=== PATIENT | female | born 1965 | race Caucasian/White ===

== ENCOUNTER → 2019-12-02 11:35 | Outpatient (BNVA) | payer BC, SELFPAY | PROVIDERS: PCP Nurse Practitioner Family; Visit Provider Nurse Practitioner Family | DX: E55.9 Vitamin D deficiency, unspecified (principal); E78.2 Mixed hyperlipidemia; I10 Essential (primary) hypertension; R53.83 Other fatigue; M51.36 Other intervertebral disc degeneration, lumbar region; K80.20 Calculus of gallbladder without cholecystitis without obstruction; M51.34 Other intervertebral disc degeneration, thoracic region; Z79.899 Other long term (current) drug therapy | CPT/HCPCS: 80053; 80061; 81001; 82306; 83036; 84443; 85025 ==

== ENCOUNTER → 2020-05-19 15:46 | Outpatient (BNVA) | payer BC, SELFPAY | PROVIDERS: PCP Nurse Practitioner Family; Visit Provider Nurse Practitioner Family | DX: N39.0 Urinary tract infection, site not specified (principal); A49.9 Bacterial infection, unspecified; H91.90 Unspecified hearing loss, unspecified ear; H93.19 Tinnitus, unspecified ear; R30.0 Dysuria | CPT/HCPCS: 81000 ==

== ENCOUNTER → 2020-11-10 09:07 | Outpatient (BNVA) | payer BC, SELFPAY | PROVIDERS: PCP Nurse Practitioner Family; Visit Provider Nurse Practitioner Family | DX: I10 Essential (primary) hypertension (principal); E55.9 Vitamin D deficiency, unspecified; E78.2 Mixed hyperlipidemia; Z79.899 Other long term (current) drug therapy; R10.2 Pelvic and perineal pain | CPT/HCPCS: 80053; 80061; 81003; 82306; 83036; 84443; 85025 ==

== ENCOUNTER 2020-11-28 15:13 | Outpatient (CLI) | payer BC, SELFPAY ==
--- NOTE | 2020-11-28 15:45 | US_ITS ---
WS: [id number] ULTRASOUND PELVIS TECHNIQUE: Transabdominal and transvaginal. ULTRASOUND PELVIS TECHNIQUE: Transabdominal. CLINICAL INFORMATION: R10.2 - Pelvic and perineal pain LMP: : No. COMPARISON: None. FINDINGS: Prior hysterectomy and left oophorectomy. Adnexa: No adnexal masses. Right ovary is not visualized. Left ovary is been removed. Free fluid: None. Other findings: None. US/US pelvic with transvaginal IMPRESSION: 1. Prior hysterectomy and left oophorectomy. 2. Right ovary is not visualized. 3. No free fluid in the cul-de-sac.
== END 2020-11-28 15:14 | disposition home or self-care (01) ==
LOC: RAD 15:16
PROVIDERS: PCP Nurse Practitioner Family; Visit Provider Nurse Practitioner Family
DX: R10.2 Pelvic and perineal pain (principal); Z90.710 Acquired absence of both cervix and uterus; Z90.721 Acquired absence of ovaries, unilateral
CPT/HCPCS: 76830; 76856

== ENCOUNTER → 2021-09-17 00:01 | Outpatient (BNVA) | payer BC, SELFPAY | PROVIDERS: PCP Nurse Practitioner Family; Visit Provider Nurse Practitioner Family | DX: Z20.822 Contact with and (suspected) exposure to COVID-19 (principal); R05.9 Cough, unspecified | CPT/HCPCS: 87635 ==

== ENCOUNTER → 2021-10-18 08:24 | Outpatient (BNVA) | payer BC, SELFPAY | PROVIDERS: PCP Nurse Practitioner Family; Visit Provider Nurse Practitioner Family | DX: E55.9 Vitamin D deficiency, unspecified (principal); I10 Essential (primary) hypertension; Z79.899 Other long term (current) drug therapy; E78.2 Mixed hyperlipidemia | CPT/HCPCS: 80053; 80061; 81003; 82306; 83036; 84443; 85025 ==

== ENCOUNTER → 2021-11-21 16:26 | Outpatient (BNVA) | payer BC, SELFPAY | PROVIDERS: PCP Nurse Practitioner Family; Visit Provider Nurse Practitioner Family | DX: R22.41 Localized swelling, mass and lump, right lower limb (principal) | CPT/HCPCS: 73610 ==

== ENCOUNTER 2022-08-02 07:56 | Outpatient (CLI) | payer OTHER, SELFPAY ==
[2022-08-02 08:30] LABS: Basophils % 0.5 %; Eosinophils # 0.1 10^3/uL (0.0-0.8); Eosinophils % 1.1 %; Hematocrit 42.3 % (37.0-47.0); Hemoglobin 13.9 g/dL (11.5-15.3); Lymphocytes # 1.3 10^3/uL (0.8-4.8); Lymphocytes % 21.4 %; Mean Corpuscular HGB Conc 32.9 g/dL (30.0-36.0); Mean Corpuscular Hemoglobin 28.5 pg (28.0-34.0); Mean Corpuscular Volume 86.7 fl (81-99); Mean Platelet Volume 11.1 fL (7.4-10.4); Monocytes # 0.3 10^3/uL (0.2-0.9); Monocytes % 5.3 %; Neutrophils # 4.42 10^3/uL (1.8-7.7); Neutrophils % 71.5 %; Nucleated Red Blood Cells % 0 %; Platelet Count 221 10^3/cmm (130-400); Red Blood Count 4.88 10^6/uL (4.1-5.3); Red Cell Distribution Width 13.2 % (12.1-15.1); White Blood Count 6.2 10^3/uL (4.0-10.0)
[2022-08-02 08:58] LABS: Alanine Aminotransferase 16 U/L (0-33); Albumin Level 4.3 g/dL (3.5-5.2); Alkaline Phosphatase 91 U/L (35-105); Anion Gap 16.1 (5-19); Aspartate Amino Transferase 15 U/L (0-32); Blood Urea Nitrogen 15 mg/dL (6-20); Calcium 9.3 mg/dL (8.5-10.5); Carbon Dioxide 26 mmol/L (22-29); Chloride 104 mmol/L (98-107); Chol HDL Ratio 3.19 mg/dL (0.0-4.40); Cholesterol 188 mg/dL (0-200); Globulin 2.9 g/dL (1.3-4.6); Glomerular Filtration Rate 73.7 mL/min (90-130); Glucose 98 mg/dL (65-115); HDL Cholesterol 59 mg/dL (60-100); LDL Cholesterol Calculated 109 mg/dL (50-129); LDL HDL Ratio 1.85 RATIO (0.00-3.22); Osmolality Calculated 295 mOsm/kg (285-295); Potassium 4.1 mmol/L (3.5-5.1); Sodium 142 mmol/L (136-145); Thyroid Stimulating Hormone 2.55 uIU/mL (0.27-4.20); Total Bilirubin 0.7 mg/dL (0.15-1.2); Total Protein 7.2 g/dL (6.6-8.7); Triglycerides 101 mg/dL (0-150)
[2022-08-03 07:37] LABS: T4 Total 9.1 mcg/dL (5.1-11.9)
== END 2022-08-02 07:57 | disposition home or self-care (01) ==
LOC: LAB 08:01
PROVIDERS: Visit Provider Nurse Practitioner Family
DX: Z13.29 Encounter for screening for other suspected endocrine disorder (principal); Z13.220 Encounter for screening for lipoid disorders; I10 Essential (primary) hypertension
CPT/HCPCS: 36415; 80053; 80061; 84436; 84443; 85025

== ENCOUNTER 2024-06-28 08:52 | Outpatient (CLI) | payer OTHER, SELFPAY ==
[2024-06-28 09:35] LABS: Basophils % 0.5 %; Eosinophils # 0.1 10^3/uL (0.0-0.8); Eosinophils % 1.1 %; Hematocrit 39.7 % (36-47); Lymphocytes # 1.3 10^3/uL (0.8-4.8); Mean Corpuscular HGB Conc 33.5 g/dL (30-55); Mean Corpuscular Volume 86.5 fl (85-98); Mean Platelet Volume 10.6 fL (7.4-10.4); Monocytes # 0.4 10^3/uL (0.2-0.9); Monocytes % 6.4 %; Neutrophils # 4.34 10^3/uL (1.8-7.7); Neutrophils % 70.8 %; Nucleated Red Blood Cells % 0 %; Platelet Count 229 10^3/cmm (157-399); Red Blood Count 4.59 10^6/uL (3.85-5.65); Red Cell Distribution Width 13.1 % (12.1-15.1); White Blood Count 6.13 10^3/uL (3.29-11.43)
[2024-06-28 10:03] LABS: Alanine Aminotransferase 10 U/L (0-33); Alkaline Phosphatase 75 U/L (35-105); Anion Gap 11.2 (5-19); Aspartate Amino Transferase 13 U/L (0-32); Blood Urea Nitrogen 17 mg/dL (8-23); Calcium 8.3 mg/dL (8.5-10.5); Carbon Dioxide 27 mmol/L (22-29); Chloride 101 mmol/L (98-107); Chol HDL Ratio 2.44 mg/dL (0.0-4.40); Cholesterol 144 mg/dL (0-200); Globulin 2.4 g/dL (1.3-4.6); Glomerular Filtration Rate 73.2 mL/min (90-130); Glucose 90 mg/dL (65-115); HDL Cholesterol 59 mg/dL (60-100); LDL Cholesterol Calculated 70 mg/dL (50-129); LDL HDL Ratio 1.19 RATIO (0.00-3.22); Osmolality Calculated 281 mOsm/kg (285-295); Potassium 4.2 mmol/L (3.5-5.1); Sodium 135 mmol/L (136-145); Thyroid Stimulating Hormone 2.21 uIU/mL (0.27-4.20); Total Bilirubin 0.6 mg/dL (0.15-1.2); Total Protein 6.4 g/dL (6.6-8.7); Triglycerides 76 mg/dL (0-150)
== END 2024-06-28 08:53 | disposition home or self-care (01) ==
LOC: LAB 08:55
PROVIDERS: PCP Nurse Practitioner Family; Visit Provider Nurse Practitioner Family
DX: I10 Essential (primary) hypertension (principal)
CPT/HCPCS: 36415; 80053; 80061; 84443; 85025

== ENCOUNTER 2024-07-23 09:30 | Outpatient (CLI) | payer OTHER, SELFPAY ==
--- NOTE | 2024-07-23 09:38 | MM_ITS ---
WS: [id number] BILATERAL SCREENING DIGITAL TOMOSYNTHESIS MAMMOGRAM WITH CAD HISTORY: SCREENING COMPARISON: 04/09/2019, 02/03/2015 Bilateral CC and MLO views with tomosynthesis and synthetic mammography submitted. Computer aided det ection analyzed. Breast composition: There are scattered areas of fibroglandular density. No suspicious masses, microc alcifications or architectural distortion. MM/MM scr BI tomosynthesis [id number] IMPRESSION: BI-RADS: 2 - Benign. FOLLOW UP: 1 Year Follow-up
== END 2024-07-23 09:34 | disposition home or self-care (01) ==
PROVIDERS: PCP Nurse Practitioner Family; Visit Provider Nurse Practitioner Family
DX: Z12.31 Encounter for screening mammogram for malignant neoplasm of breast (principal); R92.323 Mammographic fibroglandular density, bilateral breasts
CPT/HCPCS: 77063; 77067

== ENCOUNTER 2025-01-04 05:40 | Observation (INO) | payer OTHER, SELFPAY ==
[2025-01-04] VITALS (26 sets, daily range): BP systolic 94–195; BP diastolic 58–115; PULSE 59–92; RESP 12–28; TEMP 36.2–37.2; O2SAT 93–100; BMI 28.5
--- NOTE | 2025-01-04 05:50 | ECG_ITS ---
[facility] Date: 2025-01-04 Pat Name: Hailee Howell Department: Room: Gender: Female Chief Crna: : 1965 Requested By: Mo Treadwell Order Number: [id number] Thong MD: Bianca Naik M.D. Measurements Intervals [place] Rate: 72 P: 47 MT: 186 QRS: 2 QRSD: 90 T: 33 QT: 396 QTc: 436 Interpretive Statements SINUS RHYTHM LOW QRS VOLTAGE IN PRECORDIAL LEADS [QRS DEFLECTION < 1.0 mV IN CHEST LEADS] INTERPRETATION BASED ON A DEFAULT AGE OF 40 YEARS No previous ECG available for comparison Electronically Signed On 01-05-2025 21:37:00 CDT by Bianca Naik M.D. [id number]
--- NOTE | 2025-01-04 05:51 | ED_ITS ---
HPI - Chest Pain 2 General: Chief Complaint: Chest Pain Stated Complaint: Chest Pain Time Seen by Provider: 01/04/25 05:49 History of Present Illness: 59-year-old female presents to the [facility] and see room with chest pain and upper abdominal pain that began around 3 AM this morning woke her up from sleep. States she has had similar episodes multiple times in the past however they were far less intense. She does not have any radiation of pain to the neck arm or back. Taking her history and exam she localizes the pain more to the right upper quadrant. She has been told she has a sluggish gallbladder in the past. She has not had any further imaging or follow-up on that. She has noticed intermittent acholic stools that are associated with these episodes of pain. She denies any medic easy melena hematemesis coffee-ground emesis no dysuria urgency or frequency no hematuria no flank pain. No recent diarrhea. She did use some salt water last night without improvement. Associated symptoms: Reports abdominal pain and nausea; Deny dyspnea, fever(s) or vomiting Related Data Home Medications ?Medication ?Instructions ?Recorded ?Confirmed bupropion HCl 300 mg 24 hr tablet, 300 mg PO QAM 01/0401/04/25 extended release diltiazem HCl 240 mg 240 mg PO DAILY 01/04/25 capsule,extended release 24 hr, controlled (DILT-XR) olmesartan 20 mg tablet 20 mg PO BID 01/04/25 Previous Rx's ?Medication ?Instructions ?Recorded alprazolam 0.25 mg tablet (Xanax) 0.25 mg PO TID PRN a nxiety 30 days 12/14/21 #90 tabs Allergies Allergy/AdvReac Type Severity Reaction Status Date / Time Opioids - Morphine Analogues Allergy Intermediate itch Verified 01/04/25 05:49 Review of Systems 2 Const: Denies: fever(s) or chills Card: Reports: chest pain Resp: Denies: dyspnea GI: Reports: abdominal pain, nausea, bloating, GI cramping and white/light colored stool; Denies: vomiting, hematemesis, coffee ground emesis, diarrhea, hematochezia or melena : Denies: dysuria, urinary frequency or urinary urgency Musc: Denies: neck pain or back pain Skin/Breast: Denies: rash PFSH ED 2 PFSH: Medical History Tinnitus of both ears Bacterial otitis media Mass of right ankle Anxiety Lower respiratory infection Acute bacterial sinusitis Encounter for medication management Dermatitis, dyshidrotic Tinnitus Hearing loss right ear UTI (urinary tract infection), bacterial Mixed hyperlipidemia Vitamin D deficiency Essential hypertension Surgical History S/P left knee surgery 2015, fracture repair with hardware 2016, hardware removed - [facility], Dr. Mcmanus S/P laparoscopic procedure [facility] H/O bladder repair surgery S/P abdominal hysterectomy and left salpingo-oophorectomy [place], Dr. Aranda - S/P arthroscopy of right shoulder Dr. Thakkar early Social History Smoking and tobacco/nicotine status: former use of tobacco/nicotine (Hx of smoking when younger ) Physical Exam 2 Const: GENERAL APPEARANCE: cooperative ORIENTATION/CONSCIOUSNESS: Yes awake, Yes oriented to person, Yes oriented to place and Yes oriented to time HENMT: COMMON NORMALS: normocephalic, atraumatic and hearing grossly normal bilaterally HEAD & SCALP: normocephalic and atraumatic Resp: COMMON NORMALS: normal respiratory effort, No retractions, No use of accessory muscles and clear to auscultation bilaterally AUSCULTATION: clear to auscultation bilaterally Cardio: COMMON NORMALS: regular rate, regular rhythm and No murmurs present (Cardio) RATE: regular rate RHYTHM: regular rhythm GI: COMMON NORMALS: No hepatosplenomegaly present AUSCULTATION: Yes normoactive bowel sounds PALPATION: Yes Tenderness to palpation present (GI) Details: RUQ, No Guarding due to palpation present (GI) and Yes No hepatosplenomegaly present Extremity: COMMON NORMALS: normal to inspection, capillary refill normal, no clubbing, cyanosis or edema, no calf tenderness and no pedal edema Neuro: SENSORIUM/ORIENTATION: Yes oriented to person, Yes oriented to place and Yes oriented to time Skin: COMMON NORMALS: no rashes or lesions noted GENERAL SKIN EXAM: no rashes or lesions noted Course 2 Vital Signs: Vital signs: Vital Signs Temperature 97.6 F 01/04/25 16:12 Pulse Rate 68 01/04/25 16:12 Respiratory Rate 18 01/04/25 16:12 Blood Pressure 149/87 01/04/25 16:12 Pulse Oximetry 97 01/04/25 16:12 Oxygen Delivery Me thod Room Air 01/04/25 16:12 MDM - Chest Pain Medical Decision Making Ultrasound shows gallbladder sludge and cholelithiasis mild thickening of the gallbladder wall. White count is normal liver enzymes normal. We have titrated on pain medications she has had two 4 mg doses of morphine as well as Toradol. Add Zosyn and will consult surgery for early cholecystitis with cholelithiasis. Lab Data 01/04/25 06:30 01/04/25 05:53 Radiology Impressions Gallbladder Ultrasound 01/04/25 06:00 IMPRESSION: 1. Cholelithiasis in a normally distended gallbladder with a small amount of sludge. No pericholecystic fluid or gallbladder wall edema. Mild gallbladder wall thickening. 2. No common bile duct dilatation. Abdomen/Pelvis CT 01/04/25 06:57 IMPRESSION: 1. Gallbladder diameter is measuring top normal size. No adjacent edema or inflammation or wall thickening. Stones identified by ultrasound. Early changes of acute cholecystitis not excluded. 2. No intrahepatic duct dilatation. 3. Sigmoid diverticulosis without acute diverticulitis. 4. RIGHT adrenal gland mass, indeterminate. Recommend MRI or CT with adrenal gland protocol, with with and without contrast. This can be done on a nonurgent basis. 5. Tiny amount of air in the urinary bladder. May be due to instrumentation or infection. 6. Prior hysterectomy. RIGHT ovary remains. Laboratory Results WBC 8.03 10^3/uL (3.29-11.43) 01/04/25 06:30 Corrected WBC Cancelled 01/04/25 05:53 RBC 4.51 10^6/uL (3.85-5.65) 01/04/25 06:30 Hgb 13.00 g/dL (11.27-16.99) 01/04/25 06:30 Hct 38.3 % (36-47) 01/04/25 06:30 MCV 84.9 fl (85-98) L 01/04/25 06:30 MCH 28.8 pg (27-33) 01/04/25 06:30 MCHC 33.9 g/dL (30-55) 01/04/25 06:30 RDW 13.1 % (12.1-15.1) 01/04/25 06:30 Plt Count 214 10^3/cmm (157-399) 01/04/25 06:30 MPV 10.6 fL (7.4-10.4) H 01/04/25 06:30 Gran % Cancelled 01/04/25 05:53 Neut % (Auto) 80.8 % 01/04/25 06:30 Lymph % (Auto) 12.3 % 01/04/25 06:30 [place] % (Auto) 5.4 % 01/04/25 06:30 Eos % (Auto) 0.6 % 01/04/25 06:30 Baso % (Auto) 0.4 % 01/04/25 06:30 Neut # (Auto) 6.49 10^3/uL (1.8-7.7) 01/04/25 06:30 Lymph # (Auto) 1.0 10^3/uL (0.8-4.8) 01/04/25 06:30 [place] # (Auto) 0.4 10^3/uL (0.2-0.9) 01/04/25 06:30 Eos # (Auto) 0.1 10^3/uL (0.0-0.8) 01/04/25 06:30 Baso # (Auto) 0.0 10^3/uL (0.0-0.1) 01/04/25 06:30 Absolute Gran (auto) Cancelled 01/04/25 05:53 Nucleated RBC % (auto) 0 % 01/04/25 06:30 Nucleated RBCs # 0.0 /100WBC 01/04/25 06:30 Sodium 139 mmol/L (136-145) 01/04/25 05:53 Potassium 3.8 mmol/L (3.5-5.1) 01/04/25 05:53 Chloride 103 mmol/L (98-107) 01/04/25 05:53 Carbon Dioxide 22 mmol/L (22-29) 01/04/25 05:53 Anion Gap 17.8 (5-19) 01/04/25 05:53 BUN 16 mg/dL (8-23) 01/04/25 05:53 Creatinine 0.8 mg/dL (0.5-0.9) 01/04/25 05:53 GFR Calculation 72.9 mL/min (90-130) L 01/04/25 05:53 Glucose 101 mg/dL (65-115) 01/04/25 05:53 Calculated Osmolality 289 mOsm/kg (285-295) 01/04/25 05:53 Calcium 9.6 mg/dL (8.5-10.5) 01/04/25 05:53 Total Bilirubin 0.6 mg/dL (0.15-1.2) 01/04/25 05:53 AST 15 U/L (0-32) 01/04/25 05:53 ALT 14 U/L (0-33) 01/04/25 05:53 Alkaline Phosphatase 92 U/L (35-105) 01/04/25 05:53 Troponin T Baseline 8 ng/L (0-10) 01/04/25 05:53 Troponin T 120 Minute 7.57 ng/L (0-10) 01/04/25 07:34 Delta Troponin T -0.43 ABS# (0-10) L 01/04/25 07:34 Total Protein 7.1 g/dL (6.6-8.7) 01/04/25 05:53 Albumin 4.6 g/dL (3.5-5.2) 01/04/25 05:53 Globulin 2.5 g/dL (1.3-4.6) 01/04/25 05:53 Lipase 65 U/L (13-60) H 01/04/25 05:53 Urine Color Yellow (Yellow) 01/04/25 06:17 Urine Appearance Cloudy (CLEAR) A 01/04/25 06:17 Urine pH 7 (5-7) 01/04/25 06:17 Ur Specific [place] 1.015 (1.005-1.030) 01/04/25 06:17 Urine Protein Neg (Negative) 01/04/25 06:17 Urine Glucose (UA) Norm (Normal) 01/04/25 06:17 Urine Ketones Negative (Negative) 01/04/25 06:17 Urine Blood Neg (Negative) 01/04/25 06:17 Urine Nitrate Negative (Negative) 01/04/25 06:17 Urine Bilirubin Neg (Negative) 01/04/25 06:17 Urine Urobilinogen Neg mg/dL (Negative) 01/04/25 06:17 Ur Leukocyte Esterase Trace (Negative) H 01/04/25 06:17 Urine RBC 0-4 /hpf (0-2) H 01/04/25 06:17 Urine WBC 5-10 /hpf (0-5) H 01/04/25 06:17 Ur Squamous Epith Cells 5-10 /hpf (0-5) H 01/04/25 06:17 Amorphous Sediment 3+ /hpf 01/04/25 06:17 Urine Bacteria 1+ /hpf (NONE) H 01/04/25 06:17 Hyaline Casts [employer] Officer 01/04/25 06:17 Coarse Granular Casts 0-4 /lpf H 01/04/25 06:17 Urine Mucus Trace /hpf 01/04/25 06:17 All radiology interpretation(s) finalized by discharge EKG Data EKG 1: Interpretation: EKG January 04, 2025 5:42 AM Sinus rhythm, rate of 72 SD interval 186 QT 396. No acute ST changes noted T waves upright in anterior leads Discharge Plan Discharge Patient Disposition: Admitted As Inpatient Admit Provider: Aldo Cash Clinical Impression: Cholecystitis, acute with cholelithiasis Condition: Stable Coding Level of Care Code ED Vamper for Chg Art
--- NOTE | 2025-01-04 06:00 | US_ITS ---
WS: [id number] RIGHT UPPER QUADRANT ULTRASOUND HISTORY: RUQ pain, + [place], acholic stool COMPARISON: None available. Liver: 15.0 cm in length. Normal size liver and echogenicity. No bile duct dilatation or mass. Portal Vein: Not well visualized. There is a short segment visualized with normal color Doppler. Pulsed Doppler is limited. Gallbladder: Normally distended gallbladder with stones and small amount of sludge. No pericholecystic fluid. Mild gallbladder wall thickening with no edema. CBD: 0.4 cm Pancreas: Normal size and echogenicity. Right kidney: 9.8 cm in length. Normal size and echogenicity. No hydronephrosis or mass. Aorta and IVC: Unremarkable abdominal aorta and IVC. No ascites. US/US gall bladder [id number] IMPRESSION: 1. Cholelithiasis in a normally distended gallbladder with a small amount of s ludge. No pericholecystic fluid or gallbladder wall edema. Mild gallbladder wal l thickening. 2. No common bile duct dilatation.
[2025-01-04] MEDS: diphenhydrAMINE 50 mg/mL SDV 1mL IVP (06:08)
[2025-01-04] MEDS: morphine 4 mg/mL SDV 1 mL IVP ×4 (06:09→15:37)
[2025-01-04 06:16] LABS: Troponin(5th) Baseline 8 ng/L (0-10)
[2025-01-04 06:21] LABS: Alanine Aminotransferase 14 U/L (0-33); Albumin Level 4.6 g/dL (3.5-5.2); Alkaline Phosphatase 92 U/L (35-105); Anion Gap 17.8 (5-19); Aspartate Amino Transferase 15 U/L (0-32); Blood Urea Nitrogen 16 mg/dL (8-23); Calcium 9.6 mg/dL (8.5-10.5); Carbon Dioxide 22 mmol/L (22-29); Chloride 103 mmol/L (98-107); Creatinine Clr Calc Pharmacy 81.5845; Globulin 2.5 g/dL (1.3-4.6); Glomerular Filtration Rate 72.9 mL/min (90-130); Glucose 101 mg/dL (65-115); Lipase 65 U/L (13-60); Osmolality Calculated 289 mOsm/kg (285-295); Potassium 3.8 mmol/L (3.5-5.1); Sodium 139 mmol/L (136-145); Total Bilirubin 0.6 mg/dL (0.15-1.2); Total Protein 7.1 g/dL (6.6-8.7)
[2025-01-04 06:36] LABS: Basophils % 0.4 %; Eosinophils # 0.1 10^3/uL (0.0-0.8); Eosinophils % 0.6 %; Hematocrit 38.3 % (36-47); Lymphocytes % 12.3 %; Mean Corpuscular HGB Conc 33.9 g/dL (30-55); Mean Corpuscular Hemoglobin 28.8 pg (27-33); Mean Corpuscular Volume 84.9 fl (85-98); Mean Platelet Volume 10.6 fL (7.4-10.4); Monocytes # 0.4 10^3/uL (0.2-0.9); Monocytes % 5.4 %; Neutrophils # 6.49 10^3/uL (1.8-7.7); Neutrophils % 80.8 %; Nucleated Red Blood Cells % 0 %; Platelet Count 214 10^3/cmm (157-399); Red Blood Count 4.51 10^6/uL (3.85-5.65); Red Cell Distribution Width 13.1 % (12.1-15.1); White Blood Count 8.03 10^3/uL (3.29-11.43)
--- NOTE | 2025-01-04 06:57 | CT_ITS ---
WS: [id number] CT ABDOMEN AND PELVIS WITH CONTRAST HISTORY: Abdomen and RIGHT upper quadrant pain. TECHNIQUE: Imaging performed of the abdomen and pelvis with IV contrast. Single phase imaging of the abdomen. Coronal and sagittal reformats are submitted. All CT scans at [facility] use at least one of these dose optimization techniques: automated exposure control; mA and/or kV adjustment per patient size (includes targeted exams where dose is matched to clinical indication); or iterative reconstruction. IV CONTRAST: Omnipaque 350; 100 mL IV. Oral contrast: No DLP: 512.27 mGy.cm COMPARISON: Gallbladder ultrasound 01/04/2025 Lower thorax: Benign granuloma RIGHT lung base. No pneumonia. Heart is normal size. No hiatal hernia. Liver/biliary system: Normal size liver. There are a few very tiny areas of decreased attenuation which are too small to characterize. There is no intrahepatic bile duct dilatation. Portal vein is normal. Gallbladder: Gallbladder is very slightly hydropic with transverse diameter approaching 4 cm. Stones identified by ultrasound are not visualized by CT. No pericholecystic fluid or gallbladder wall thickening identified. Normal common bile duct. Pancreas: Normal size pancreas and pancreatic duct. No adjacent inflammation. Spleen: Normal size spleen. No mass or infarct. Adrenal glands: RIGHT adrenal gland heterogeneous bilobed mass measuring 3.3 x 2.1 cm. The largest lobulation measures 2.5 x 1.8 cm. LEFT adrenal gland is normal. Right kidney: Normal. Left kidney: Normal. Aorta: Mild atherosclerosis with no aneurysm. Lymphadenopathy: None. Free fluid: None. GI tract: Normally distended stomach. No small bowel obstruction. Normal appendix. Mild diffuse constipation. Mild diverticular burden in the sigmoid colon without acute diverticulitis. Abdominal wall: Unremarkable abdominal wall. No hernia. Pelvis: Urinary bladder is well distended. There is a tiny focus of air in the urinary bladder which may be due to instrumentation or infection. No fistula with the GI tract suspected. Prior hysterectomy. RIGHT ovary remains with a small follicle. Bones: Unremarkable. CT/CT abdomen pelvis w con* [id number] IMPRESSION: 1. Gallbladder diameter is measuring top normal size. No adjacent edema or inf lammation or wall thickening. Stones identified by ultrasound. Early changes of acute cholecystitis not excluded. 2. No intrahepatic duct dilatation. 3. Sigmoid diverticulosis without acute diverticulitis. 4. RIGHT adrenal gland mass, indeterminate. Recommend MRI or CT with adrenal g land protocol, with with and without contrast. This can be done on a nonurgent basis. 5. Tiny amount of air in the urinary bladder. May be due to instrumentation or infection. 6. Prior hysterectomy. RIGHT ovary remains.
[2025-01-04 07:09] LABS: Add Urine Microscopic? YES; Bilirubin Urine Neg (Negative); Blood Urine Neg (Negative); Glucose Urine UA Norm (Normal); Ketones Urine Negative (Negative); Leukocyte Esterase Urine Trace (Negative); Nitrate Urine Negative (Negative); Protein Urine Neg (Negative); Specific Gravity, Urine 1.015 (1.005-1.030); Urine Appearance Cloudy (CLEAR); Urine Color Yellow (Yellow); Urobilinogen Urine Neg (Negative); pH Urine 7 (5-7)
[2025-01-04 07:10] LABS: UA Manual Slide Review YES
[2025-01-04 07:11] LABS: RBC Urine 0-4 /hpf (0-2)
[2025-01-04 07:12] LABS: Add Urine Culture? No; Amorphous Sediment Urine 3+ /hpf; Bacteria Urine 1+ /hpf; Coarse Granular Casts Urine 0-4 /lpf; Mucus Urine TRACE /hpf
[2025-01-04] MEDS: ketorolac 30 mg/mL INJ IVP (07:19)
--- NOTE | 2025-01-04 07:32 | PC.PHAR ---
Addendum entered by Rosie Van 01/04/25 07:34: Removed Pro Air HFA, Vit d3 50,000 units, Eucrisa 2% Oint., Gabapentin 300mg, Lisinopril 10mg, Zofran 4mg odt, Miralax, Paxil 10mg, Transderm scope patch, and Triamcinolone Acet. 0.1% cr. Original Note: Pts' med list has not been updated since 2021-removed 8 old prn meds and creams.
--- NOTE | 2025-01-04 07:50 | ECG_ITS ---
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 Measurements Intervals [place] Rate: 62 P: 97 [place]: 186 QRS: -28 QRSD: 86 T: -29 QT: 424 QTc: 431 Interpretive Statements SINUS RHYTHM POSSIBLE LEFT ATRIAL ENLARGEMENT [-0.1mV P-WAVE IN V1/V2] BORDERLINE LEFT AXIS DEVIATION [QRS AXIS < -20] Compared to ECG 01/04/2025 05:42:55 No significant changes Electronically Signed On 01-05-2025 21:51:57 CDT by Bianca Naik M.D. [email or web address]
[2025-01-04 08:02] LABS: Troponin 5 2HR 7.57 ng/L (0-10)
[2025-01-04 08:05] LABS: Troponin 5 2HR Delta -0.43 ABS# (0-10)
[2025-01-04] MEDS: iohexol 350 mg/mL 500 mL Btl (per mL) IV (08:17)
--- NOTE | 2025-01-04 09:36 | P.HP_ITS ---
Providers/Chief Complaint 2 Admitting Physician: Aldo Cash MD Primary Care Provider: Elyse Tavarez APN Chief Complaint: Chest Pain History of Present Illness Hailee Howell is a 59 year old female who presented with acute cholecystitis. Patient initially reported right upper quadrant pain that radiated to the back. Ultrasound and CT scan findings consistent with a early acute cholecystitis. No relevant past medical or surgical history Medications/Allergies Home Medications ?Medication ?Instructions ?Recorded ?Confirmed ?Last Taken ?Type alprazolam 0.25 mg tablet (Xanax) 0.25 mg PO TID PRN a nxiety 30 days 12/14/21 01/04/25 Unknown Rx #90 tabs bupropion HCl 300 mg 24 hr tablet, 300 mg PO QAM 01/0401/04/25 01/03/25 History extended release diltiazem HCl 240 mg 240 mg PO DAILY 01/04/2501/03/25 History capsule,extended release 24 hr, controlled (DILT-XR) olmesartan 20 mg tablet 20 mg PO BID 01/04/2501/03/25 History Allergies Allergy/AdvReac Type Severity Reaction Status Date / Time Opioids - Morphine Analogues Allergy Intermediate itch Verified 01/04/25 05:49 PFSH Acute 2 PFSH: Medical History Tinnitus of both ears Bacterial otitis media Mass of right ankle Anxiety Lower respiratory infection Acute bacterial sinusitis Encounter for medication management Dermatitis, dyshidrotic Tinnitus Hearing loss right ear UTI (urinary tract infection), bacterial Mixed hyperlipidemia Vitamin D deficiency Essential hypertension Surgical History S/P left knee surgery 2015, fracture repair with hardware 2016, hardware removed - [facility] [place], Dr. Mcmanus S/P laparoscopic procedure [facility] H/O bladder repair surgery S/P abdominal hysterectomy and left salpingo-oophorectomy [place], Dr. Aranda - S/P arthroscopy of right shoulder Dr. Thakkar early Social History Smoking and tobacco/nicotine status: former use of tobacco/nicotine (Hx of smoking when younger ) Vitals/I&O/Wt Last Vital Signs Temp 97.8 F 01/04/25 05:45 Pulse 63 01/04/25 06:12 Resp 20 H 01/04/25 06:59 BP 181/108 01/04/25 06:12 Pulse Ox 100 01/04/25 06:12 O2 Del Method Room Air 01/04/25 06:12 01/03/25 01/04/25 01/04/25 22:59 06:59 14:59 Intake Total 0 / 0 Balance 0 / 0 Weight last 48 hrs Weight 182 lb Physical Exam 2 Narrative: Chest: Unlabored breathing room air. No lymphadenopathy. Heart: Regular rate and rhythm. Abdomen: Soft, tender right upper quadrant, nondistended. No masses or lymphadenopathy. Data 01/04/25 06:30 01/04/25 05:53 A&P Assessment and plan (1) Cholecystitis: Plan 59-year-old female who presents with acute cholecystitis. Discussed risk and benefits and patient agrees to proceed with laparoscopic cholecystectomy possible open. PDMP PDMP Reviewed: Not Reviewed Attestations 2 Medical Necessity Statement*: IV pain meds, IV fluids, surgery pending. Less than 48 hours observation. Coding Level of Care Code 55446 Diagnoses Cholecystitis K81.9
[2025-01-04] MEDS: D5-NS 0.45% + KCL 20 mEq 20 MEQ/1,000 ML BAG 125 MEQ IV (10:28)
--- NOTE | 2025-01-04 11:07 | ECG_ITS ---
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 Measurements Intervals [place] Rate: 62 P: 24 [place]: 183 QRS: 6 QRSD: 102 T: 25 QT: 443 QTc: 451 Interpretive Statements SINUS RHYTHM WITH SINUS ARRHYTHMIA Compared to ECG 01/04/2025 09:03:56 No significant changes Electronically Signed On 01-05-2025 21:51:10 CDT by Bianca Naik M.D. [id number]
[2025-01-04 12:20] LABS: Troponin 5 6HR 10.99 ng/L (0-10); Troponin 5 6HR Delta 2.99 ng/L (0-12)
--- NOTE | 2025-01-04 16:02 | PC.NURSE ---
PT LEAVES FLOOR FOR SURGERY
--- NOTE | 2025-01-04 16:04 | ANES.PREANE2 ---
Pre-Anesthetic Assessment Height/Weight: Height 1.7 m Weight 82.554 kg Temp Pulse Resp BP Pulse Ox O2 Del Method 97.8 F 71 16 134/75 99 Room Air 01/04/25 15:01/04/25 15:25 01/04/25 15:25 01/04/25 15:25 01/04/25 15:25 01/04/25 15:25 Operation Date: 01/04/25 16:00 Proposed Procedures p Laparoscopic Cholecystectomy(Not Applicable) - Aldo Cash MD Social No alcohol and No tobacco Exam alert, oriented x 3, clear to auscultation bilaterally and regular rate & rhythm Airway Submandibular: within normal limits Cervical ROM: within normal limits Mallampati: Class II History/ROS No significant history except as noted Neuropsych Anxiety Neurogenic hearing loss Anesthetic Plan ASA status: 2 Anesthesia: General Medications/Allergies Home Medications ?Medication ?Instructions ?Recorded ?Confirmed ?Last Taken ?Type alprazolam 0.25 mg tablet (Xanax) 0.25 mg PO TID PRN anxiety 30 days 12/14/21 01/04/25 Unknown Rx #90 tabs bupropion HCl 300 mg 24 hr tablet, 300 mg PO QAM 01/04/25 01/04/25 01/03/25 History extended release diltiazem HCl 240 mg 240 mg PO DAILY 01/04/25 01/04/25 01/03/25 History capsule,extended release 24 hr, controlled (DILT-XR) olmesartan 20 mg tablet 20 mg PO BID 01/04/25 01/04/25 01/03/25 History Allergies Allergy/AdvReac Type Severity Reaction Status Date / Time Opioids - Morphine Analogues Allergy Intermediate itch Verified 01/04/25 05:49 Current Medications Generic Name Dose Route Start Last Admin Trade Name Freq PRN Reason Stop Dose Admin Potassium Chloride/Dextrose/Sod Cl 20 meq in 1,000 mls @ 125 mls/hr 01/04/25 09:59 01/04/25 10:28 D5-Ns 0.45% + Kcl 20 Meq IV 125 mls/hr .Q8H KILEY Administration Morphine Sulfate 4 mg 01/04/25 09:59 01/04/25 15:37 Morphine 4 Mg/Ml Sdv 1 Ml IVP 4 mg Q4H PRN Administration SEVERE PAIN PFSH Anesthesia Medical History Tinnitus of both ears Bacterial otitis media Mass of right ankle Anxiety Lower respiratory infection Acute bacterial sinusitis Encounter for medication management Dermatitis, dyshidrotic Tinnitus Hearing loss right ear UTI (urinary tract infection), bacterial Mixed hyperlipidemia Vitamin D deficiency Essential hypertension Surgical History S/P left knee surgery 2015, fracture repair with hardware 2017, hardware removed - [facility] [place], Dr. Mcmanus S/P laparoscopic procedure [facility] H/O bladder repair surgery S/P abdominal hysterectomy and left salpingo-oophorectomy [place], Dr. Aranda - S/P arthroscopy of right shoulder Dr. Thakkar early Social History Smoking and tobacco/nicotine status: former use of tobacco/nicotine (Hx of smoking when younger ) Data Anesthesia 01/04/25 06:30 01/04/25 05:53 Short CBC 01/04/25 01/04/25 Range/Units 05:53 06:30 WBC Cancelled 8.03 Hgb Cancelled 13.00 Hct Cancelled 38.3 MCV Cancelled 84.9 L Plt Count Cancelled 214 Neut % (Auto) Cancelled 80.8 Neut # (Auto) Cancelled 6.49 BMP 01/04/25 05:53 Sodium 139 Potassium 3.8 Chloride 103 Carbon Dioxide 22 BUN 16 Creatinine 0.8 Glucose 101 Calcium 9.6 Cardiac Enzymes 01/04/25 01/04/25 01/04/25 Range/Units 05:53 07:34 11:55 Troponin T Baseline 8 (0-10) ng/L Troponin T 120 Minute 7.57 (0-10) ng/L Delta Troponin T -0.43 L (0-10) ABS# Troponin T Hi Sens 6Hr 10.99 H (0-10) ng/L Troponin T Hi Sens 6Hr Delta 2.99 (0-12) ng/L Liver Function 01/04/25 Range/Units 05:53 Total Bilirubin 0.6 (0.15-1.2) mg/dL AST 15 (0-32) U/L ALT 14 (0-33) U/L Alkaline Phosphatase 92 (35-105) U/L Albumin 4.6 (3.5-5.2) g/dL Urine 01/04/25 Range/Units 06:17 Urine Color Yellow (Yellow) Urine Appearance Cloudy A (CLEAR) Urine pH 7 (5-7) Ur Specific [place] 1.015 (1.005-1.030) Urine Protein Neg (Negative) Urine Glucose (UA) Norm (Normal) Urine Ketones Negative (Negative) Urine Nitrate Negative (Negative) Urine Bilirubin Neg (Negative) Ur Leukocyte Esterase Trace H (Negative) Urine RBC 0-4 H (0-2) /hpf Urine WBC 5-10 H (0-5) /hpf Cardiac Studies: No Data to Display
[2025-01-04] MEDS: sodium chloride 0.9% 1,000 ML 30 ML IV (16:23)
[2025-01-04] MEDS: scopolamine 1 mg PATCH 1 PATCH TRANSDERMA (16:24)
[2025-01-04] MEDS: ceFAZolin 2,000 mg SDV 2000 MG IVP (17:49)
[2025-01-04] MEDS: lidocaine-epi 1% 20 mL INJ INJECTION (17:50)
--- NOTE | 2025-01-04 18:35 | PM.OP ---
Operative Report Date of procedure: January 04, 2025 Pre-op diagnosis: Cholecystitis Post-op diagnosis: same Post-op findings: Gallbladder hydrops. Inflammatory rind around the gallbladder. Multiple stones in gallbladder. 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 Inflammatory rind around the gallbladder. Multiple stones in gallbladder. Condition: stable Disposition: observation Brief History: 59-year-old female who presented with acute cholecystitis. Discussed risk and benefits and patient agreed to proceed with laparoscopic cholecystectomy possible open. Procedure: I discussed the risks and benefits of laparoscopic cholecystectomy possible open, and obtained consent prior to proceeding to the operating room. SCDs were utilized. Prophylactic antibiotics were administered. General anesthesia was induced. The patient was placed supine, and she was prepped and draped in the usual sterile fashion. Insufflation to 15mmHg was achieved using a Veress needle at Bradshaw's point. A 5mm optiview trocar was placed at the umbilicus under direct visualization. The left upper quadrant was inspected, and no injuries were noted. Two 5mm ports were placed in the right upper quadrant, and a 12mm working port was placed in the epigastrium. The gallbladder was then retracted cephalad through the lateral RUQ port, and the infundibulum grabbed through the medial RUQ port and retracted laterally. The gallbladder was inflammed, gallbladder hydrops was encountered, it also had and inflammatory rind. This was consistent with her diagnosis of cholecystitis. I proceeded to score the peritoneum over the medial aspect of the gallbladder using a laparoscopic hook with electrocautery. Then the infundibulum was retracted medially in order to score the peritoneum over the lateral aspect of the galbladder. Using a combination of energy and blunt dissection with the [place] and a Kittner dissector, the cystic artery and cystic duct were dissected. I then proceeded to dissect the cystic plate in order to to achieve the critical view of safety. The cystic artery and the cystic duct were clipped three times (leaving two clips on the proximal end of both structures). I then proceeded to dissect the gallbladder off the liver using hook electrocautery. The specimen was placed in an endocatch bag and retrieved from the abdomen through the port on the epigastrium. I then irrigated the gallbladder fossa with 3L of NS to confirm adequate hemostasis and the absence of any bile leaks. The gallbladder fossa was then cauterized again and one sheet of surgicell was left in resection bed. Prior to ending the laparoscopic portion, I examined the rest of the abdomen and did not find any abnormalities or injuries. The abdomen was then desufflated. Skin was closed using 4-0 monocryl and surgical glue. The patient woke up from anesthesia and transferred to PACU without any complications.
[2025-01-04] MEDS: fentaNYL 50 mcg/mL INJ 2mL IVP (19:02)
[2025-01-05] VITALS (7 sets, daily range): BP systolic 93–111; BP diastolic 58–75; PULSE 73–92; RESP 17–19; TEMP 36.6–36.8; O2SAT 95–97
[2025-01-05] MEDS: oxyCODONE 5 mg IR Tab/Cap PO ×2 (00:28→07:46)
--- NOTE | 2025-01-05 07:07 | P.PN_ITS ---
Subjective 2 Subjective: Tolerating clears Pain under control Ambulating Vitals/I&O/Wt Last Vital Signs Temp 97.8 F 01/05/25 04:10 Pulse 92 01/05/25 04:10 Resp 17 01/05/25 04:10 BP 111/75 01/05/25 05:41 Pulse Ox 96 01/05/25 04:10 O2 Del Method Room Air 01/05/25 04:10 O2 Flow Rate 6 01/04/25 18:57 01/04/25 01/05/25 01/05/25 22:59 06:59 14:59 Intake Total 600 / 600 520 / 1120 Output Total Balance 590 / 590 520 / 1110 Weight last 48 hrs Weight 193 lb 12.8 oz Weight 182 lb Weight 182 lb Physical Exam 2 Narrative: Chest: Unlabored breathing room air. No lymphadenopathy. Heart: Regular rate and rhythm. Abdomen: Soft, appropriately tender, nondistended. No masses or lymphadenopathy. Incisions clean dry intact Data 01/04/25 06:30 01/04/25 05:53 A&P Assessment and plan (1) Cholecystitis, acute with cholelithiasis: Plan 59-year-old female who presented with cholecystitis. Status post lap luis f. Doing well. Cleared for discharge. Follow-up in 2 weeks. Can return to work in 1 week. No heavy lifting for 6 weeks (10 pounds or greater). PDMP PDMP Reviewed: Last Reviewed 01/04/25 19:42 EDT by Aldo Cash MD Attestations 2 Medical Necessity Statement*: N/A Coding Level of Care Code 18637 Diagnoses Cholecystitis, acute with cholelithiasis K80.00
--- NOTE | 2025-01-05 07:07 | PM.DCS ---
Discharge Providers Date of Admission: 01/04/25 09:04 Date of Discharge: January 05, 2025 Attending Provider at Admission: Aldo Cash MD Attending Provider at Discharge: Aldo Cash MD Primary Care Provider: Elyse Tavarez APN Diagnoses at Discharge Discharge Diagnosis (1) Cholecystitis: Status: Acute Reason for Visit Reason for Visit: Chest Pain Hospital Course Hospital Course 59-year-old female who presented with cholecystitis. Perform laparoscopic cholecystectomy. Patient did well following day and was discharged. Physical Exam Narrative: Chest: Unlabored breathing room air. No lymphadenopathy. Heart: Regular rate and rhythm. Abdomen: Soft, appropriately tender, nondistended. No masses or lymphadenopathy. Incisions clean dry intact Discharge Data Studies Completed and Pending Completed Studies During Hospitalization Category Date Time Status CT abdomen pelvis w con* [id number] Stat Cat Scan 01/04/25 06:57 Completed US gall bladder [id number] Stat Ultrasound 01/04/25 06:00 Completed Pending at discharge Category Date Time Status Pathology: Surgical [PTH] Routine Pth 01/04/25 18:35 Ordered Radiology Impressions Gallbladder Ultrasound 01/04/25 06:00 IMPRESSION: 1. Cholelithiasis in a normally distended gallbladder with a small amount of sludge. No pericholecystic fluid or gallbladder wall edema. Mild gallbladder wall thickening. 2. No common bile duct dilatation. Abdomen/Pelvis CT 01/04/25 06:57 IMPRESSION: 1. Gallbladder diameter is measuring top normal size. No adjacent edema or inflammation or wall thickening. Stones identified by ultrasound. Early changes of acute cholecystitis not excluded. 2. No intrahepatic duct dilatation. 3. Sigmoid diverticulosis without acute diverticulitis. 4. RIGHT adrenal gland mass, indeterminate. Recommend MRI or CT with adrenal gland protocol, with with and without contrast. This can be done on a nonurgent basis. 5. Tiny amount of air in the urinary bladder. May be due to instrumentation or infection. 6. Prior hysterectomy. RIGHT ovary remains. Laboratory Results WBC 8.03 10^3/uL (3.29-11.43) 01/04/25 06:30 Corrected WBC Cancelled 01/04/25 05:53 RBC 4.51 10^6/uL (3.85-5.65) 01/04/25 06:30 Hgb 13.00 g/dL (11.27-16.99) 01/04/25 06:30 Hct 38.3 % (36-47) 01/04/25 06:30 MCV 84.9 fl (85-98) L 01/04/25 06:30 MCH 28.8 pg (27-33) 01/04/25 06:30 MCHC 33.9 g/dL (30-55) 01/04/25 06:30 RDW 13.1 % (12.1-15.1) 01/04/25 06:30 Plt Count 214 10^3/cmm (157-399) 01/04/25 06:30 MPV 10.6 fL (7.4-10.4) H 01/04/25 06:30 Gran % Cancelled 01/04/25 05:53 Neut % (Auto) 80.8 % 01/04/25 06:30 Lymph % (Auto) 12.3 % 01/04/25 06:30 [place] % (Auto) 5.4 % 01/04/25 06:30 Eos % (Auto) 0.6 % 01/04/25 06:30 Baso % (Auto) 0.4 % 01/04/25 06:30 Neut # (Auto) 6.49 10^3/uL (1.8-7.7) 01/04/25 06:30 Lymph # (Auto) 1.0 10^3/uL (0.8-4.8) 01/04/25 06:30 [place] # (Auto) 0.4 10^3/uL (0.2-0.9) 01/04/25 06:30 Eos # (Auto) 0.1 10^3/uL (0.0-0.8) 01/04/25 06:30 Baso # (Auto) 0.0 10^3/uL (0.0-0.1) 01/04/25 06:30 Absolute Gran (auto) Cancelled 01/04/25 05:53 Nucleated RBC % (auto) 0 % 01/04/25 06:30 Nucleated RBCs # 0.0 /100WBC 01/04/25 06:30 Sodium 139 mmol/L (136-145) 01/04/25 05:53 Potassium 3.8 mmol/L (3.5-5.1) 01/04/25 05:53 Chloride 103 mmol/L (98-107) 01/04/25 05:53 Carbon Dioxide 22 mmol/L (22-29) 01/04/25 05:53 Anion Gap 17.8 (5-19) 01/04/25 05:53 BUN 16 mg/dL (8-23) 01/04/25 05:53 Creatinine 0.8 mg/dL (0.5-0.9) 01/04/25 05:53 GFR Calculation 72.9 mL/min (90-130) L 01/04/25 05:53 Glucose 101 mg/dL (65-115) 01/04/25 05:53 Calculated Osmolality 289 mOsm/kg (285-295) 01/04/25 05:53 Calcium 9.6 mg/dL (8.5-10.5) 01/04/25 05:53 Total Bilirubin 0.6 mg/dL (0.15-1.2) 01/04/25 05:53 AST 15 U/L (0-32) 01/04/25 05:53 ALT 14 U/L (0-33) 01/04/25 05:53 Alkaline Phosphatase 92 U/L (35-105) 01/04/25 05:53 Troponin T Baseline 8 ng/L (0-10) 01/04/25 05:53 Troponin T 120 Minute 7.57 ng/L (0-10) 01/04/25 07:34 Delta Troponin T -0.43 ABS# (0-10) L 01/04/25 07:34 Troponin T Hi Sens 6Hr 10.99 ng/L (0-10) H 01/04/25 11:55 Troponin T Hi Sens 6Hr Delta 2.99 ng/L (0-12) 01/04/25 11:55 Total Protein 7.1 g/dL (6.6-8.7) 01/04/25 05:53 Albumin 4.6 g/dL (3.5-5.2) 01/04/25 05:53 Globulin 2.5 g/dL (1.3-4.6) 01/04/25 05:53 Lipase 65 U/L (13-60) H 01/04/25 05:53 Urine Color Yellow (Yellow) 01/04/25 06:17 Urine Appearance Cloudy (CLEAR) A 01/04/25 06:17 Urine pH 7 (5-7) 01/04/25 06:17 Ur Specific [place] 1.015 (1.005-1.030) 01/04/25 06:17 Urine Protein Neg (Negative) 01/04/25 06:17 Urine Glucose (UA) Norm (Normal) 01/04/25 06:17 Urine Ketones Negative (Negative) 01/04/25 06:17 Urine Blood Neg (Negative) 01/04/25 06:17 Urine Nitrate Negative (Negative) 01/04/25 06:17 Urine Bilirubin Neg (Negative) 01/04/25 06:17 Urine Urobilinogen Neg mg/dL (Negative) 01/04/25 06:17 Ur Leukocyte Esterase Trace (Negative) H 01/04/25 06:17 Urine RBC 0-4 /hpf (0-2) H 01/04/25 06:17 Urine WBC 5-10 /hpf (0-5) H 01/04/25 06:17 Ur Squamous Epith Cells 5-10 /hpf (0-5) H 01/04/25 06:17 Amorphous Sediment 3+ /hpf 01/04/25 06:17 Urine Bacteria 1+ /hpf (NONE) H 01/04/25 06:17 Hyaline Casts Telephone Engineer 01/04/25 06:17 Coarse Granular Casts 0-4 /lpf H 01/04/25 06:17 Urine Mucus Trace /hpf 01/04/25 06:17 Vitals Last Vital Signs Temp 97.8 F 01/05/25 04:10 Pulse 92 01/05/25 04:10 Resp 17 01/05/25 04:10 BP 111/75 01/05/25 05:41 Pulse Ox 96 01/05/25 04:10 O2 Del Method Room Air 01/05/25 04:10 O2 Flow Rate 6 01/04/25 18:57 Discharge Plan Discharge Patient Disposition: Home Condition: Stable Prescriptions: New oxycodone 5 mg tablet 5 mg PO Q6H PRN (Reason: pain) 5 Days Qty: 10 0RF Continued alprazolam [Xanax] 0.25 mg tablet 0.25 mg PO TID PRN (Reason: anxiety) 30 Days Qty: 90 0RF olmesartan 20 mg tablet 20 mg PO BID bupropion HCl 300 mg tablet extended release 24 hr 300 mg PO QAM diltiazem HCl [DILT-XR] 240 mg capsule,ext.rel 24h degradable 240 mg PO DAILY Discharge Orders: Discharge Order (Routine); Ordered 01/04/25 Ordered By: Aldo Cash Referrals: Aldo Cash MD [Physician] - 2 weeks Tavarez,CARLOS Pappas [Primary Care Provider] - Discharge Diet: Usual diet Discharge Activity: Limit activity as instructed Patient Instructions: Oxycodone/Acetaminophen (By mouth), Acute Wound Care (DC), Laparoscopic Cholecystectomy (GEN), Opioid Safety, Post Anesthesia Care Activity Restrictions/Additional Instructions: 1. No heavy exercise or lifting greater than 10lbs for 6 weeks. 2. No pools, saunas, bathtubs for [address] if taking narcotics. 4. You may take over the counter tylenol 650mg every 6 hrs and ibuprofen 400mg every 6 hrs as needed for 5 days in addition to the oxycodone. 5. Follow-up in clinic in 2 weeks. 6. Call the office if you have any concerns or questions. Discharge Attestations Time Spent in Discharge Care*: less than 30 min Quality Metrics Clinical Quality Measures [ No reported AMI, CVA or VTE this stay] Coding Level of Care Code Acute Code for Chg Fwd Diagnoses Cholecystitis K81.9
--- NOTE | 2025-01-05 09:11 | PC.CHAP ---
Pastoral Care Encounter/Spiritual Assessment Type of Contact [] Declined mattress stuffer visit [] Patient/Family/Request visit [] Outpatient visit [] Follow-up visit [] Physician referral [] Code/Alert [x] Routine visit [] Staff referral [] Actively dying [] Patient sleeping [] Family support [] [] Out of room [] Palliative care [] [] Receiving care in room [] Pre-surgical visit [] Trauma [] Long length of stay [] ICU visit [] Other: Relational/Emotional Strength [x] Patient feels connected with others/family/visitors/staff [] Distress [] Loneliness/isolation [] Abandonment Spirituality of Patient [x] Person of Stephy [] Attends Druze of their Stephy [x] Believes in Prayer [] Reads Bible or Mandaeism materials [] There are Spiritual issues to be addressed Elevator Erector Helper Interventions [x] Prayer [x] Active listening [] Non-anxious presence [x] Spiritual/emotional support [] Crisis/trauma care [] Spiritual counseling [] Bereavement support [] Provided bereavement packet [] Provided Bible/devotional materials [] Provided toy/stuffed animal, coloring book to patient or family member [] Provided Communion [] Anointing/[place] [] Salvation [x] Completed spiritual assessment [] Other: Impact on Illness or Injury [] Angry [] Fearful [] Anxious [] Often cries [] Exhaustion [] Unable to work [] Unable to attend sikh [] Unable to walk/stand [] Unable to read [] Unable to drive [] Unable to eat/drink [] Unable to sleep [] Unable to be with family [] Patient intubated [] Other: Summary Time spent with patient 5 min
--- NOTE | 2025-01-05 10:13 | PC.NURSE ---
IV removed by nursing specialist.
== END 2025-01-05 10:40 | disposition home or self-care (01) ==
LOC: ER 08:46 → MEDSURG 09:05
PROVIDERS: Admitting Provider Student in an Organized Health Care Education/Training Program; Emergency Provider Family Medicine; PCP Nurse Practitioner Family; Visit Provider Student in an Organized Health Care Education/Training Program
PROC: 0FT44ZZ Resection of Gallbladder, Percutaneous Endoscopic Approach (ICD-10-PCS; CPT 47562; principal; 2025-01-04 15:50)
DX: K80.10 Calculus of gallbladder with chronic cholecystitis without obstruction (principal); F41.9 Anxiety disorder, unspecified; E78.5 Hyperlipidemia, unspecified; I10 Essential (primary) hypertension; Z87.440 Personal history of urinary (tract) infections; E55.9 Vitamin D deficiency, unspecified; Z87.891 Personal history of nicotine dependence
CPT/HCPCS: 47562; 36415; 74177; 76705; 80053; 81001; 83690; 84484; 85025; 88304; 93005; 96374; 96375; 96376; 99285; C1052; G0378; J0131; J0360; J0690; J1100; J1171; J1200; J1885; J2250; J2270; J2405; J2704; J3010; J3490; J7030; J9999

== ENCOUNTER 2025-01-07 02:55 | Emergency (ER) | payer OTHER, SELFPAY ==
[2025-01-07] VITALS (7 sets, daily range): BP systolic 154–187; BP diastolic 83–110; PULSE 75–97; RESP 18–20; TEMP 36.8; O2SAT 92–100
--- NOTE | 2025-01-07 03:54 | XRR_ITS ---
PROCEDURE INFORMATION: Exam: XR Abdomen Exam date and time: 01/07/2025 4:05 AM Age: 59 years old Clinical indication: Other: Post surgury; Prior surgery; Surgery date: Post-operative (0-2 days); Surgery type: Milly; Additional info: Epigastric pain post surgically, concern for ileus TECHNIQUE: Imaging protocol: Radiologic exam of the abdomen. Views: Frontal supine view of the abdomen. 1 View. COMPARISON: CT abdomen pelvis w con* [id number] 01/04/2025 8:06 AM FINDINGS: Gastrointestinal tract: Large volume colonic fecal material suggesting constipation. Nonspecific bowel gas pattern. No bowel dilation. Intraperitoneal space: Right upper quadrant surgical clips indicate prior cholecystectomy. Bones/joints: Unremarkable. XR/XR KUB [id number] IMPRESSION: Nonspecific.
--- NOTE | 2025-01-07 03:57 | W.ED.ABDPA2 ---
Documented by User: Dennys Weller MD 01/07/25 06:56 HPI - Abdominal Pain General: Chief Complaint: Abdominal Pain Stated Complaint: post surg pain more severe n/v Time Seen by Provider: 01/07/25 03:18 History of Present Illness: The patient, Mrs. Howell, s/p cholecystectomy on 01/04/25 reports experiencing severe abdominal pain that she describes as 5,000 level pain. She initially took oxycodone at 10:45 AM, followed by 4 ibuprofen at 12:00 PM, and 2 Tylenol at 1:00 PM, but the pain persisted. She called Dr. Ramesh's office, who advised her on medication, but the pain did not subside. The patient mentions that the pain feels similar to what she experienced before her gallbladder surgery. She also reports vomiting a little after returning home and experiencing low-grade fever with a temperature of 100?F. She has not had a bowel movement since the surgery but has passed gas and belched. The pain is localized in the upper abdomen, with no pain near the appendix. Related Data Home Medications ?Medication ?Instructions ?Recorded ?Confirmed bupropion HCl 300 mg 24 hr tablet, 300 mg PO QAM 01/04/25 01/07/25 extended release diltiazem HCl 240 mg 240 mg PO DAILY 01/04/25 01/07/25 capsule,extended release 24 hr, controlled (DILT-XR) olmesartan 20 mg tablet 20 mg PO BID 01/04/25 01/07/25 acetaminophen 500 mg tablet 1,000 mg PO Q6H PRN Pain 01/07/25 01/07/25 (Tylenol Extra Strength) Previous Rx's ?Medication ?Instructions ?Recorded alprazolam 0.25 mg tablet (Xanax) 0.25 mg PO TID PRN anxiety 30 days 12/14/21 #90 tabs oxycodone 5 mg tablet 5 mg PO Q6H PRN pain 5 days #10 01/04/25 tabs Allergies Allergy/AdvReac Type Severity Reaction Status Date / Time Opioids - Morphine Analogues Allergy Intermediate itch Verified 01/04/25 05:49 [facility] ED PFS: Medical History Tinnitus of both ears Bacterial otitis media Mass of right ankle Anxiety Lower respiratory infection Acute bacterial sinusitis Encounter for medication management Dermatitis, dyshidrotic Tinnitus Hearing loss right ear UTI (urinary tract infection), bacterial Mixed hyperlipidemia Vitamin D deficiency Essential hypertension Surgical History S/P left knee surgery 2015, fracture repair with hardware 2017, [place] [facility] [place] Mcmanus S/P laparoscopic procedure [facility] H/O bladder repair surgery S/P abdominal hysterectomy and left salpingo-oophorectomy [place], Dr. Aranda - S/P arthroscopy of right shoulder Dr. Thakkar early Social History Smoking and tobacco/nicotine status: former use of tobacco/nicotine (Hx of smoking when younger ) Physical Exam Const: COMMON NORMALS: patient oriented x3 and alert OTHER: Moderate distress due to pain HENMT: COMMON NORMALS: normocephalic and atraumatic HEAD & SCALP: normocephalic and atraumatic Eye: COMMON NORMALS: Equal, round and reactive pupils present, EOMs intact bilaterally and no scleral icterus PUPIL: Yes Equal, round and reactive pupils present Resp: COMMON NORMALS: normal respiratory effort and No retractions Cardio: COMMON NORMALS: regular rate, regular rhythm and No murmurs present (Cardio) RATE: regular rate RHYTHM: regular rhythm GI: OTHER: Abdomen is soft and nonperitoneal abdomen is soft and nonperitoneal. Moderate epigastric, right and left upper quadrant tenderness. Bowel sounds present. Neuro: COMMON NORMALS: patient oriented x3 SENSORIUM/ORIENTATION: Yes alert Skin: COMMON NORMALS: no rashes or lesions noted GENERAL SKIN EXAM: no rashes or lesions noted Course Vital Signs: Vital signs: Vital Signs Temperature 98.2 F 01/07/25 03:07 Pulse Rate 97 01/07/25 12:39 Respiratory Rate 18 01/07/25 06:00 Blood Pressure 154/90 01/07/25 12:39 Pulse Oximetry 93 01/07/25 12:39 Oxygen Delivery Me thod Room Air 01/07/25 08:07 MDM - Abdominal Pain Medical Decision Making In summary, patient is a generally well-appearing 59-year-old female seen for worsening epigastric and right upper quadrant pain 3 days status post cholecystectomy. White blood cell count is elevated at 22,[address] scan was performed. At time of shift change, radiology read for CT scan is pending. Pertinent details of the case were shared with the oncoming emergency physician who help facilitate ultimate disposition based on radiology findings. Patient's pain is much better with Dilaudid. Lab Data 01/07/25 09:18 01/07/25 04:00 Labs/Radiology: Radiology Impressions KUB X-Ray 01/07/25 03:54 IMPRESSION: Nonspecific. Abdomen/Pelvis CT 01/07/25 04:57 IMPRESSION: 1. Imaging findings of hepatic lacerations along the gallbladder bed, in association with large hematoma in the surgical bed, and extension of hemorrhagic products into the pelvis, peripancreatic region, right superior retro colic region, and right anterior pararenal space. These findings are consistent with grade 2 traumatic liver injury, upgraded by with evidence of hemorrhagic products extending into retroperitoneum and pelvis. 2. Trace right pleural effusion with adjacent atelectasis. 3. Right adrenal masses, likely representing adenomas. Further evaluation with contrast enhanced abdomen MRI in a nonemergent basis recommended. ADDENDUM: 01/07/25 0745 ADDENDUM: THIS REPORT CONTAINS FINDINGS THAT MAY BE CRITICAL TO PATIENT CARE. The findings were verbally communicated via telephone conference with DR. RODGERS at 7:42 AM CDT on 01/07/2025. The findings were acknowledged and understood. Laboratory Results WBC 21.26 10^3/uL (3.29-11.43) H 01/07/25 09:18 RBC 4.16 10^6/uL (3.85-5.65) 01/07/25 09:18 Hgb 12.20 g/dL (11.27-16.99) 01/07/25 09:18 Hct 35.2 % (36-47) L 01/07/25 09:18 MCV 84.6 fl (85-98) L 01/07/25 09:18 MCH 29.3 pg (27-33) 01/07/25 09:18 MCHC 34.7 g/dL (30-55) 01/07/25 09:18 RDW 13.2 % (12.1-15.1) 01/07/25 09:18 Plt Count 208 10^3/cmm (157-399) 01/07/25 09:18 MPV 10.3 fL (7.4-10.4) 01/07/25 09:18 Neut % (Auto) 93.4 % 01/07/25 09:18 Lymph % (Auto) 1.1 % 01/07/25 09:18 [place] % (Auto) 4.9 % 01/07/25 09:18 Eos % (Auto) 0.0 % 01/07/25 09:18 Baso % (Auto) 0.1 % 01/07/25 09:18 Neut # (Auto) 19.83 10^3/uL (1.8-7.7) H 01/07/25 09:18 Lymph # (Auto) 0.2 10^3/uL (0.8-4.8) L 01/07/25 09:18 [place] # (Auto) 1.0 10^3/uL (0.2-0.9) H 01/07/25 09:18 Eos # (Auto) 0.0 10^3/uL (0.0-0.8) 01/07/25 09:18 Baso # (Auto) 0.0 10^3/uL (0.0-0.1) 01/07/25 09:18 Nucleated RBC % (auto) 0 % 01/07/25 09:18 Nucleated RBCs # 0.0 /100WBC 01/07/25 09:18 Sodium 136 mmol/L (136-145) 01/07/25 04:00 Potassium 3.8 mmol/L (3.5-5.1) 01/07/25 04:00 Chloride 97 mmol/L (98-107) L 01/07/25 04:00 Carbon Dioxide 24 mmol/L (22-29) 01/07/25 04:00 Anion Gap 18.8 (5-19) 01/07/25 04:00 BUN 12 mg/dL (8-23) 01/07/25 04:00 Creatinine 0.6 mg/dL (0.5-0.9) 01/07/25 04:00 GFR Calculation 101.6 mL/min (90-130) 01/07/25 04:00 Glucose 177 mg/dL (65-115) H 01/07/25 04:00 Calculated Osmolality 286 mOsm/kg (285-295) 01/07/25 04:00 Calcium 9.4 mg/dL (8.5-10.5) 01/07/25 04:00 Total Bilirubin 1.8 mg/dL (0.15-1.2) H 01/07/25 04:00 AST 19 U/L (0-32) 01/07/25 04:00 ALT 28 U/L (0-33) 01/07/25 04:00 Alkaline Phosphatase 88 U/L (35-105) 01/07/25 04:00 Total Protein 7.7 g/dL (6.6-8.7) 01/07/25 04:00 Albumin 4.5 g/dL (3.5-5.2) 01/07/25 04:00 Globulin 3.2 g/dL (1.3-4.6) 01/07/25 04:00 Lipase 14 U/L (13-60) 01/07/25 04:00 Urine Color Yellow (Yellow) 01/07/25 05:30 Urine Appearance Clear (CLEAR) 01/07/25 05:30 Urine pH 7.5 (5-7) 01/07/25 05:30 Ur Specific [place] 1.026 (1.005-1.030) 01/07/25 05:30 Urine Protein Negative (Negative) 01/07/25 05:30 Urine Glucose (UA) Trace (Normal) H 01/07/25 05:30 Urine Ketones 1+ (Negative) H 01/07/25 05:30 Urine Blood Negative (Negative) 01/07/25 05:30 Urine Nitrate Negative (Negative) 01/07/25 05:30 Urine Bilirubin Negative (Negative) 01/07/25 05:30 Urine Urobilinogen 1.0 mg/dL (Negative) 01/07/25 05:30 Ur Leukocyte Esterase Trace (Negative) A 01/07/25 05:30 Urine RBC 0-2 /hpf (0-2) 01/07/25 05:30 Urine WBC 0-5 /hpf (0-5) 01/07/25 05:30 Ur Squamous Epith Cells 0-5 /hpf (0-5) 01/07/25 05:30 Amorphous Sediment Not Reportable 01/07/25 05:30 Urine Bacteria None seen /hpf (NONE) 01/07/25 05:30 Hyaline Casts 0-4 /lpf H 01/07/25 05:30 Discharge Plan Discharge Patient Disposition: Xfer Short-Term Hosp Clinical Impression: Liver laceration, grade II, without open wound into cavity, Status post laparoscopic cholecystectomy Condition: Stable Referrals: Corby,CARLOS Pappas [Primary Care Provider] - Print Language: Uzbek Sign Out Sign Out Data: Patient Sign Out occurred on 01/07/25 at 07:17. Patient's care was discussed, and care was transferred from Dennys Weller MD to Mo Rodgers DO. Coding Level of Care Code ED Diamond Sander for Chg Fwd Documented by User: Mo Rodgers DO 01/07/25 13:30 HPI - Abdominal Pain General: Chief Complaint: Abdominal Pain Stated Complaint: post surg pain more severe n/v Time Seen by Provider: 01/07/25 03:18 Related Data Home Medications ?Medication ?Instructions ?Recorded ?Confirmed bupropion HCl 300 mg 24 hr tablet, 300 mg PO QAM 01/04/25 01/07/25 extended release diltiazem HCl 240 mg 240 mg PO DAILY 01/04/25 01/07/25 capsule,extended release 24 hr, controlled (DILT-XR) olmesartan 20 mg tablet 20 mg PO BID 01/04/25 01/07/25 acetaminophen 500 mg tablet 1,000 mg PO Q6H PRN Pain 01/07/25 01/07/25 (Tylenol Extra Strength) Previous Rx's ?Medication ?Instructions ?Recorded alprazolam 0.25 mg tablet (Xanax) 0.25 mg PO TID PRN anxiety 30 days 12/14/21 #90 tabs oxycodone 5 mg tablet 5 mg PO Q6H PRN pain 5 days #10 01/04/25 tabs Allergies Allergy/AdvReac Type Severity Reaction Status Date / Time Opioids - Morphine Analogues Allergy Intermediate itch Verified 01/04/25 05:49 PFS ED PFSH: Medical History Tinnitus of both ears Bacterial otitis media Mass of right ankle Anxiety Lower respiratory infection Acute bacterial sinusitis Encounter for medication management Dermatitis, dyshidrotic Tinnitus Hearing loss right ear UTI (urinary tract infection), bacterial Mixed hyperlipidemia Vitamin D deficiency Essential hypertension Surgical History S/P left knee surgery 2015, fracture repair with hardware 2017, [place] removed [place] [facility] [place] Mcmanus S/P laparoscopic procedure [facility] H/O bladder repair surgery S/P abdominal hysterectomy and left salpingo-oophorectomy [place], Dr. Aranda - S/P arthroscopy of right shoulder Dr. Thakkar early Social History Smoking and tobacco/nicotine status: former use of tobacco/nicotine (Hx of smoking when younger ) Course Vital Signs: Vital signs: Vital Signs Temperature 98.2 F 01/07/25 03:07 Pulse Rate 97 01/07/25 12:39 Respiratory Rate 18 01/07/25 06:00 Blood Pressure 154/90 01/07/25 12:39 Pulse Oximetry 93 01/07/25 12:39 Oxygen Delivery Me thod Room Air 01/07/25 08:07 MDM - Abdominal Pain Medical Decision Making In summary, patient is a generally well-appearing 59-year-old female seen for worsening epigastric and right upper quadrant pain 3 days status post cholecystectomy. White blood cell count is elevated at 22,[address] scan was performed. At time of shift change, radiology read for CT scan is pending. Pertinent details of the case were shared with the oncoming emergency physician who help facilitate ultimate disposition based on radiology findings. Patient's pain is much better with Dilaudid. Care assumed at change of shift patient continues to have acute surgical abdomen CT shows a significant more blood in the gallbladder fossa extending down into the pelvis. Repeat hemoglobin shows her hemoglobin has slight decrease From 12 6-12 12. Prior to her surgery her hemoglobin was 13. CT shows a laceration of the liver in the gallbladder bed is likely because of the blood that is seen. Unfortunately we do not have surgical coverage this weekend due to some logistical and scheduling issues. Patient will be transferred to emergency have discussed with her on-call general surgeon who accepted the patient. Medical Records I reviewed the patient's medical records. Lab Data I reviewed the patient's lab results. 01/07/25 09:18 01/07/25 04:00 Labs/Radiology: Radiology Impressions KUB X-Ray 01/07/25 03:54 IMPRESSION: Nonspecific. Abdomen/Pelvis CT 01/07/25 04:57 IMPRESSION: 1. Imaging findings of hepatic lacerations along the gallbladder bed, in association with large hematoma in the surgical bed, and extension of hemorrhagic products into the pelvis, peripancreatic region, right superior retro colic region, and right anterior pararenal space. These findings are consistent with grade 2 traumatic liver injury, upgraded by with evidence of hemorrhagic products extending into retroperitoneum and pelvis. 2. Trace right pleural effusion with adjacent atelectasis. 3. Right adrenal masses, likely representing adenomas. Further evaluation with contrast enhanced abdomen MRI in a nonemergent basis recommended. ADDENDUM: 01/07/25 0745 ADDENDUM: THIS REPORT CONTAINS FINDINGS THAT MAY BE CRITICAL TO PATIENT CARE. The findings were verbally communicated via telephone conference with DR. RODGERS at 7:42 AM CDT on 01/07/2025. The findings were acknowledged and understood. Laboratory Results WBC 21.26 10^3/uL (3.29-11.43) H 01/07/25 09:18 RBC 4.16 10^6/uL (3.85-5.65) 01/07/25 09:18 Hgb 12.20 g/dL (11.27-16.99) 01/07/25 09:18 Hct 35.2 % (36-47) L 01/07/25 09:18 MCV 84.6 fl (85-98) L 01/07/25 09:18 MCH 29.3 pg (27-33) 01/07/25 09:18 MCHC 34.7 g/dL (30-55) 01/07/25 09:18 RDW 13.2 % (12.1-15.1) 01/07/25 09:18 Plt Count 208 10^3/cmm (157-399) 01/07/25 09:18 MPV 10.3 fL (7.4-10.4) 01/07/25 09:18 Neut % (Auto) 93.4 % 01/07/25 09:18 Lymph % (Auto) 1.1 % 01/07/25 09:18 [place] % (Auto) 4.9 % 01/07/25 09:18 Eos % (Auto) 0.0 % 01/07/25 09:18 Baso % (Auto) 0.1 % 01/07/25 09:18 Neut # (Auto) 19.83 10^3/uL (1.8-7.7) H 01/07/25 09:18 Lymph # (Auto) 0.2 10^3/uL (0.8-4.8) L 01/07/25 09:18 [place] # (Auto) 1.0 10^3/uL (0.2-0.9) H 01/07/25 09:18 Eos # (Auto) 0.0 10^3/uL (0.0-0.8) 01/07/25 09:18 Baso # (Auto) 0.0 10^3/uL (0.0-0.1) 01/07/25 09:18 Nucleated RBC % (auto) 0 % 01/07/25 09:18 Nucleated RBCs # 0.0 /100WBC 01/07/25 09:18 Sodium 136 mmol/L (136-145) 01/07/25 04:00 Potassium 3.8 mmol/L (3.5-5.1) 01/07/25 04:00 Chloride 97 mmol/L (98-107) L 01/07/25 04:00 Carbon Dioxide 24 mmol/L (22-29) 01/07/25 04:00 Anion Gap 18.8 (5-19) 01/07/25 04:00 BUN 12 mg/dL (8-23) 01/07/25 04:00 Creatinine 0.6 mg/dL (0.5-0.9) 01/07/25 04:00 GFR Calculation 101.6 mL/min (90-130) 01/07/25 04:00 Glucose 177 mg/dL (65-115) H 01/07/25 04:00 Calculated Osmolality 286 mOsm/kg (285-295) 01/07/25 04:00 Calcium 9.4 mg/dL (8.5-10.5) 01/07/25 04:00 Total Bilirubin 1.8 mg/dL (0.15-1.2) H 01/07/25 04:00 AST 19 U/L (0-32) 01/07/25 04:00 ALT 28 U/L (0-33) 01/07/25 04:00 Alkaline Phosphatase 88 U/L (35-105) 01/07/25 04:00 Total Protein 7.7 g/dL (6.6-8.7) 01/07/25 04:00 Albumin 4.5 g/dL (3.5-5.2) 01/07/25 04:00 Globulin 3.2 g/dL (1.3-4.6) 01/07/25 04:00 Lipase 14 U/L (13-60) 01/07/25 04:00 Urine Color Yellow (Yellow) 01/07/25 05:30 Urine Appearance Clear (CLEAR) 01/07/25 05:30 Urine pH 7.5 (5-7) 01/07/25 05:30 Ur Specific [place] 1.026 (1.005-1.030) 01/07/25 05:30 Urine Protein Negative (Negative) 01/07/25 05:30 Urine Glucose (UA) Trace (Normal) H 01/07/25 05:30 Urine Ketones 1+ (Negative) H 01/07/25 05:30 Urine Blood Negative (Negative) 01/07/25 05:30 Urine Nitrate Negative (Negative) 01/07/25 05:30 Urine Bilirubin Negative (Negative) 01/07/25 05:30 Urine Urobilinogen 1.0 mg/dL (Negative) 01/07/25 05:30 Ur Leukocyte Esterase Trace (Negative) A 01/07/25 05:30 Urine RBC 0-2 /hpf (0-2) 01/07/25 05:30 Urine WBC 0-5 /hpf (0-5) 01/07/25 05:30 Ur Squamous Epith Cells 0-5 /hpf (0-5) 01/07/25 05:30 Amorphous Sediment Not Reportable 01/07/25 05:30 Urine Bacteria None seen /hpf (NONE) 01/07/25 05:30 Hyaline Casts 0-4 /lpf H 01/07/25 05:30 All radiology interpretation(s) finalized by discharge Discharge Plan Discharge Patient Disposition: Xfer Short-Term Hosp Clinical Impression: Liver laceration, grade II, without open wound into cavity, Status post laparoscopic cholecystectomy Condition: Stable Referrals: Tavarez,CARLOS Pappas [Primary Care Provider] - Print Language: Uzbek Sign Out Sign Out Data: Patient Sign Out occurred on 01/07/25 at 07:17. Patient's care was discussed, and care was transferred from Dennys Weller MD to Mo Rodgers DO. Coding Level of Care Code ED Diamond Sander for Junior Cordova
[2025-01-07] MEDS: sodium chloride 0.9% 1,000 ML 999 ML IV (04:04)
[2025-01-07] MEDS: LORazepam 2 mg/mL INJ 1 mL 1 MG IVP (04:04)
[2025-01-07] MEDS: HYDROmorphone 0.5 MG/0.5 ML INJ 1 MG IVP ×3 (04:04→11:57)
[2025-01-07] MEDS: diphenhydrAMINE 50 mg/mL SDV 1mL 25 MG IVP (04:04)
[2025-01-07 04:05] LABS: Basophils % 0.1 %; Hematocrit 37.3 % (36-47); Lymphocytes # 0.4 10^3/uL (0.8-4.8); Lymphocytes % 1.6 %; Mean Corpuscular HGB Conc 33.8 g/dL (30-55); Mean Corpuscular Volume 85.9 fl (85-98); Mean Platelet Volume 10.7 fL (7.4-10.4); Monocytes # 1.1 10^3/uL (0.2-0.9); Neutrophils # 20.27 10^3/uL (1.8-7.7); Neutrophils % 92.7 %; Nucleated Red Blood Cells % 0 %; Platelet Count 239 10^3/cmm (157-399); Red Blood Count 4.34 10^6/uL (3.85-5.65); Red Cell Distribution Width 13.2 % (12.1-15.1); White Blood Count 21.89 10^3/uL (3.29-11.43)
[2025-01-07 04:27] LABS: Alanine Aminotransferase 28 U/L (0-33); Albumin Level 4.5 g/dL (3.5-5.2); Alkaline Phosphatase 88 U/L (35-105); Anion Gap 18.8 (5-19); Aspartate Amino Transferase 19 U/L (0-32); Blood Urea Nitrogen 12 mg/dL (8-23); Calcium 9.4 mg/dL (8.5-10.5); Carbon Dioxide 24 mmol/L (22-29); Chloride 97 mmol/L (98-107); Creatinine Clr Calc Pharmacy 111.5996; Globulin 3.2 g/dL (1.3-4.6); Glomerular Filtration Rate 101.6 mL/min (90-130); Glucose 177 mg/dL (65-115); Lipase 14 U/L (13-60); Osmolality Calculated 286 mOsm/kg (285-295); Potassium 3.8 mmol/L (3.5-5.1); Sodium 136 mmol/L (136-145); Total Bilirubin 1.8 mg/dL (0.15-1.2); Total Protein 7.7 g/dL (6.6-8.7)
--- NOTE | 2025-01-07 04:57 | CTR_ITS ---
PROCEDURE INFORMATION: Exam: CT Abdomen And Pelvis With Contrast Exam date and time: 01/07/2025 5:06 AM Age: 59 years old Clinical indication: Abdominal tenderness and bloating; Prior surgery; Surgery date: Post-operative (0-2 days); Surgery type: Milly; Additional info: 2 days post cholecystectomy, 5000/10 epigastri pain, 21k wbc TECHNIQUE: Imaging protocol: Computed tomography of the abdomen and pelvis with contrast. Radiation optimization: All CT scans at this facility use at least one of these dose optimization techniques: automated exposure control; mA and/or kV adjustment per patient size (includes targeted exams where dose is matched to clinical indication); or iterative reconstruction. Contrast material: OMNI 350; Contrast volume: 100 ml; Contrast route: INTRAVENOUS (IV); COMPARISON: CT abdomen pelvis w con* [id number] 01/04/2025 8:06 AM RADIATION DOSE METRICS: Total DLP (mGy-cm): 821.01 FINDINGS: Lungs: Small calcified granuloma seen in the right lung base. No consolidation. Pleural spaces: Trace right pleural effusion seen. Bilateral dependent atelectasis noted. Diaphragm: Small hiatal hernia is present. Liver: Adjacent to the gallbladder bed, there are 2 linear foci of decreased attenuation extending into the parenchyma, measuring approximately 2.7 cm and 1.5 cm, highly concerning for lacerations. Tiny foci of decreased attenuation noted in the liver, which are too small to characterize. Few tiny calcified granulomas noted. No cirrhotic features. Gallbladder and biliary ducts: The gallbladder has been surgically removed. No biliary ductal dilatation identified. Pancreas: Normal. No ductal dilation. Spleen: A small accessory splenule is noted in the left upper quadrant. The spleen is unremarkable. Adrenal glands: There are 2 masses in the right adrenal gland, measuring approximately 1.7 cm and 2.9 cm, likely representing adenomas. The left adrenal gland is unremarkable. Kidneys and ureters: Normal. No hydronephrosis. Stomach and bowel: There is diverticulosis without evidence of diverticulitis. Appendix: No evidence of appendicitis. Intraperitoneal space: Small amount of complex fluid/hemorrhagic products noted in the pelvis. No free air. Retroperitoneal space: There is a heterogeneous fluid collection in the gallbladder bed, extending into the peripancreatic region, anterior pararenal space and right retro colic region, measuring approximately 11.2 x 5.8 x 8.5 cm. Vasculature: No aortic aneurysm. No aortic dissection. Mild diffuse atherosclerotic disease is present. Lymph nodes: Unremarkable. No enlarged lymph nodes. Urinary bladder: Unremarkable as visualized. Reproductive: The uterus is surgically absent. Small cyst measuring 1.7 cm noted in the right ovary. Bones/joints: Degenerative changes of the spine seen. Soft tissues: Unremarkable. CT/CT abdomen pelvis w con* [id number] IMPRESSION: 1. Imaging findings of hepatic lacerations along the gallbladder bed, in association with large hematoma in the surgical bed, and extension of hemorrhagic products into the pelvis, peripancreatic region, right superior retro colic region, and right anterior pararenal space. These findings are consistent with grade 2 traumatic liver injury, upgraded by with evidence of hemorrhagic products extending into retroperitoneum and pelvis. 2. Trace right pleural effusion with adjacent atelectasis. 3. Right adrenal masses, likely representing adenomas. Further evaluation with contrast enhanced abdomen MRI in a nonemergent basis recommended.
[2025-01-07] MEDS: iohexol 350 mg/mL 500 mL Btl (per mL) IV (05:11)
[2025-01-07 05:53] LABS: Bilirubin Urine Negative (Negative); Blood Urine Negative (Negative); Glucose Urine UA Trace (Normal); Ketones Urine 1+ (Negative); Leukocyte Esterase Urine Trace (Negative); Nitrate Urine Negative (Negative); Protein Urine Negative (Negative); Specific Gravity, Urine 1.026 (1.005-1.030); Urine Appearance Clear (CLEAR); Urine Color Yellow (Yellow); pH Urine 7.5 (5-7)
[2025-01-07 05:58] LABS: Add Urine Microscopic? YES; Bacteria Urine None Seen /hpf; Hyaline Casts Urine 0-4 /lpf; RBC Urine 0-2 /hpf (0-2); Squamous Epithelial Cell Urine 0-5 /hpf (0-5); WBC Urine 0-5 /hpf (0-5)
[2025-01-07] MEDS: HYDROmorphone 0.5 MG/0.5 ML INJ IVP (06:27)
[2025-01-07 09:27] LABS: Basophils % 0.1 %; Hematocrit 35.2 % (36-47); Lymphocytes # 0.2 10^3/uL (0.8-4.8); Lymphocytes % 1.1 %; Mean Corpuscular HGB Conc 34.7 g/dL (30-55); Mean Corpuscular Hemoglobin 29.3 pg (27-33); Mean Corpuscular Volume 84.6 fl (85-98); Mean Platelet Volume 10.3 fL (7.4-10.4); Monocytes % 4.9 %; Neutrophils # 19.83 10^3/uL (1.8-7.7); Neutrophils % 93.4 %; Nucleated Red Blood Cells % 0 %; Platelet Count 208 10^3/cmm (157-399); Red Blood Count 4.16 10^6/uL (3.85-5.65); Red Cell Distribution Width 13.2 % (12.1-15.1); White Blood Count 21.26 10^3/uL (3.29-11.43)
== END 2025-01-07 12:41 | disposition short-term general hospital (02) ==
PROVIDERS: Student in an Organized Health Care Education/Training Program; Emergency Provider Family Medicine; PCP Nurse Practitioner Family
DX: S36.115A Moderate laceration of liver, initial encounter (principal); Z98.890 Other specified postprocedural states; Z87.891 Personal history of nicotine dependence; X58.XXXA Exposure to other specified factors, initial encounter; E78.2 Mixed hyperlipidemia; I10 Essential (primary) hypertension
CPT/HCPCS: 36415; 74018; 74177; 80053; 81001; 83690; 85025; 96374; 96375; 96376; 99285; J1171; J1200; J2060; J7030

== ENCOUNTER → 2025-07-04 08:14 | Outpatient (BNVA) | payer OTHER, SELFPAY | PROVIDERS: PCP Nurse Practitioner Family; Visit Provider Nurse Practitioner Family | DX: I10 Essential (primary) hypertension (principal); E78.2 Mixed hyperlipidemia; E27.8 Other specified disorders of adrenal gland; E55.9 Vitamin D deficiency, unspecified; L30.1 Dyshidrosis [pompholyx]; R93.89 Abnormal findings on diagnostic imaging of other specified body structures; R53.83 Other fatigue; D64.9 Anemia, unspecified | CPT/HCPCS: 80053; 80061; 81003; 82306; 82607; 82728; 82746; 83036; 83550; 84439; 84443; 85025; 86038; 86200; 86431 ==